=== PATIENT | male | born 1990 | race Two or more races ===

== ENCOUNTER 2021-01-20 11:13 | Emergency (ER) | payer OTHER, SELFPAY ==
[2021-01-20 11:53] VITALS: BP 151/91; PULSE 110; RESP 16; TEMP 37.2; O2SAT 100
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
== END 2021-01-20 13:10 | disposition home or self-care (01) ==
PROVIDERS: Emergency Provider Nurse Practitioner Family
DX: S39.012A Strain of muscle, fascia and tendon of lower back, initial encounter (principal); S13.4XXA Sprain of ligaments of cervical spine, initial encounter; V89.2XXA Person injured in unspecified motor-vehicle accident, traffic, initial encounter
CPT/HCPCS: 99213; G0463